=== PATIENT | male | born 1970 | race Caucasian/White ===

== ENCOUNTER → 2023-10-11 12:31 | Outpatient (CLI) | payer OTHER, SELFPAY ==
--- NOTE | ~2023-10-11 | XR_ITS ---
EXAMINATION: XR lumbar spine 2-3V DATE: 10/11/2023 13:19 INDICATION: Low back pain. TECHNIQUE: 3 views of lumbar spine on 4 radiographs were obtained. COMPARISON: None. FINDINGS: There is 3 mm anterolisthesis of L5 on S1. Vertebral body heights are normal. There are end plate osteophytes at multiple levels. Intervertebral disc heights are normal. There is severe facet j oint osteoarthritis in lower lumbar spine. IMPRESSION: 1. Mild lumbar spondylosis. Reviewed, dictated and finalized at location E. TENDER PAPER MACHINE IMPRESSION: 1. Mild lumbar spondylosis.
--- NOTE | ~2023-10-11 | XR_ITS ---
XR knee RT min 4V 10/11/2023 13:19 Indication: Right knee pain Procedure: 5 views right knee Comparison: No prior studies for comparison. Findings: There is polyarticular osteoarthritis of the knee, most advanced in the medial compartment. There is an osteochondral defect of the medial femoral condyle. Small joint effusion. No foreign bod ies. There is moderate medial soft tissue swelling. 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 2: Age-indeterminate osteochondral defect medial femoral condyle. 3: Small joint effusion with medial soft tissue swelling. Reviewed, dictated and finalized at location L. 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 2: Age-indeterminate osteochondral defect medial femoral condyle. 3: Small joint effusion with medial soft tissue swelling.
--- NOTE | ~2023-10-11 | XR_ITS ---
EXAMINATION: XR chest 2V 10/11/2023 13:15 INDICATION: Cough for one week PROCEDURE: 2 view chest COMPARISON: No prior studies for comparison. FINDINGS: The lungs are clear. The cardiomediastinal silhouette is within normal limits. There are no pleural effusions. There is no pneumothorax suspected. IMPRESSION: 1: NO ACUTE CARDIOPULMONARY DISEASE. Reviewed, dictated and finalized at location L. LOPMENTAL MATHEMATICS INSTRUCTOR
== END ==
PROVIDERS: PCP Emergency Medicine; Visit Provider Emergency Medicine
DX: M43.06 Spondylolysis, lumbar region (principal); M17.11 Unilateral primary osteoarthritis, right knee; M25.461 Effusion, right knee; R05.9 Cough, unspecified
CPT/HCPCS: 71046; 72100; 73564